=== PATIENT | male | born 1985 | race Caucasian/White ===

== ENCOUNTER 2021-03-04 05:05 | Inpatient (IN) | payer OTHER ==
[~2021-03-04] VITALS: Ht 172.7 cm; Wt 111.0 kg
--- NOTE | 2021-03-04 07:02 | NUR ---
REPORT OF PT FROM ROSINA MATTA AND ASSUMING CARE OF PT AT THIS TIME. ALL QUESTIONS ANSWERED.
--- NOTE | 2021-03-04 08:03 | NUR ---
ATTEMPTED REPORT OF PT TO FLOOR. PLACED ON HOLD FOR 10 MINUTES WITH NO ANSWER. WILL TRY TO CALL REPORT AGAIN
--- NOTE | 2021-03-04 08:29 | NUR ---
ATTEMPTED REPORT OF PT AGAIN. PER FLOOR, RN WILL CALL BACK FOR REPORT IN 5 MINUTES.
--- NOTE | 2021-03-04 08:45 | NUR ---
CALLED TECHNICAL DELIVERY MANAGER OF MED TO GIVE REPORT AT [phone] TO GIVE REPORT. PER TECHNICAL DELIVERY MANAGER, SHE WILL CALL BACK FOR REPORT IN 5 MINUTES WHEN SHE IS BACK ON FLOOR.
--- NOTE | 2021-03-04 09:03 | NUR ---
REPORT OF PT TO ROSINA MASSEY. ALL QUESTIONS ANSWERED.
--- NOTE | 2021-03-04 09:07 | NUR ---
RECEIVED REPORT FROM ROSINA WILSON. PT RESTING ON [place]. NADN. GIRON.
[2021-03-04] MEDS ORDERED: OXYcodone IR 5MG TABLET PO PRN (11:00)
[2021-03-04 13:00] VITALS: BP 115/70
[2021-03-04] MEDS ORDERED: ONDANSETRON 2MG/ML, 2ML IVPush PRN (14:30)
[2021-03-04] MEDS ORDERED: ONDANSETRON ODT 4 MG PO PRN (14:30)
[2021-03-04] MEDS ORDERED: morphine SULFATE 10 MG/ML, 1ML IVPush PRN (14:30)
[2021-03-04] MEDS ORDERED: BISACODYL 10 MG SUPP PR PRN (14:30)
[2021-03-04] MEDS ORDERED: MELATONIN 5 MG TABLET PO PRN (14:30)
[2021-03-04] MEDS ORDERED: POLYETHYLENE GLYCOL 17 GM PACKET PO PRN (14:30)
[2021-03-04] MEDS ORDERED: VANCOMYCIN PER PHARMACY MC PRN (14:30)
[2021-03-04] MEDS ORDERED: hydrALAzine 20 MG/ML, 1ML IVPush PRN (14:30)
[2021-03-04] MEDS ORDERED: PHARMACOKINETIC MONITORING MC PRN (15:00)
[2021-03-04] MEDS ORDERED: PHARMACOKINETIC CONSULTATION MC ONE (15:00)
[2021-03-04] MEDS ORDERED: VANCOMYCIN 2,500 MG in SODIUM CHLORIDE 0.9% 500 ML IV ONE (15:00)
[2021-03-04] MEDS: AMPICILLIN/SULBACTAM 3 GM in SODIUM CHLORIDE 0.9% 100 ML IV SCH ×2 (15:16→20:48)
[2021-03-04 15:21] LABS: BASOPHILS % (AUTO) 1 % (0-1); EOSINOPHILS % (AUTO) 3 % (1-7); LYMPHOCYTES % (AUTO) 20 % (22-44); MEAN CORPUSCULAR HEMOGLOBIN 32.9 pg (27.5-34.5); MEAN PLATELET VOLUME 7.7 fL (7.4-10.4); MONOCYTES % (AUTO) 9 % (2-9); NEUTROPHILS % (AUTO) 67 % (42-75); PLATELET COUNT 264 x10^3/uL (130-400); RED BLOOD COUNT 4.07 x10^6/uL (4.38-5.82); RED CELL DISTRIBUTION WIDTH 13.3 % (9.4-14.8)
[2021-03-04 15:35] LABS: ANION GAP 3 mmol/L (5-15); CALCIUM 8.8 mg/dL (8.5-10.1); CHLORIDE 107 mmol/L (98-107); CREATININE 0.96 mg/dL (0.7-1.3)
[2021-03-04 15:37] LABS: CREATINE KINASE, TOTAL 752 U/L (39-308)
[2021-03-04] MEDS: ENOXAPARIN 40 MG/0.4 ML SQ SCH (16:50)
[2021-03-04 19:03] LABS: MICROSCOPIC NOT IND
[2021-03-04 20:59] VITALS: BP 114/73
[2021-03-04] MEDS: LACTATED RINGERS 1,000 ML IV SCH (21:47)
[2021-03-05] MEDS: AMPICILLIN/SULBACTAM 3 GM in SODIUM CHLORIDE 0.9% 100 ML IV SCH ×4 (02:45→20:32)
[2021-03-05 02:58] VITALS: BP 121/78
[2021-03-05] MEDS: VANCOMYCIN 2,000 MG in SODIUM CHLORIDE 0.9% 500 ML IV SCH ×2 (04:29→17:19)
[2021-03-05 05:58] LABS: CHLORIDE 111 mmol/L (98-107)
[2021-03-05 06:02] LABS: BASOPHILS % (AUTO) 1 % (0-1); EOSINOPHILS % (AUTO) 4 % (1-7); LYMPHOCYTES % (AUTO) 30 % (22-44); MEAN CORPUSCULAR HEMOGLOBIN 33.3 pg (27.5-34.5); MEAN CORPUSCULAR HGB CONC 34.5 g/dL (33.2-36.2); MEAN PLATELET VOLUME 7.8 fL (7.4-10.4); MONOCYTES % (AUTO) 12 % (2-9); NEUTROPHILS % (AUTO) 53 % (42-75); PLATELET COUNT 238 x10^3/uL (130-400); RED BLOOD COUNT 3.85 x10^6/uL (4.38-5.82); RED CELL DISTRIBUTION WIDTH 12.9 % (9.4-14.8)
[2021-03-05 06:17] LABS: ALANINE AMINOTRANSFERASE 64 U/L (12-78); ALBUMIN 2.3 g/dL (3.4-5.0); ALKALINE PHOSPHATASE 68 U/L (45-117); ANION GAP 4 mmol/L (5-15); BILIRUBIN,TOTAL 0.7 mg/dL (0.2-1.0); CALCIUM 8.6 mg/dL (8.5-10.1); CHOL/HDL RATIO 4.1; CHOLESTEROL, TOTAL 170 mg/dL (140-239); CREATININE 0.91 mg/dL (0.7-1.3); HDL CHOL % 24 % (26-37); HDL CHOLESTEROL (DIRECT) 41 mg/dL (40-60); LDL CHOLESTEROL,CALCULATED 106 mg/dL (54-169); LDL/HDL RATIO 2.6 (0.5-3.0); TOTAL PROTEIN 6.4 g/dL (6.4-8.2); TRIGLYCERIDES 116 mg/dL (50-200); VLDL CHOLESTEROL 23 mg/dL (0-25)
[2021-03-05] MEDS: SENNA/DOCUSATE TABLET PO SCH (09:00)
[2021-03-05 09:40] VITALS: BP 116/75
[2021-03-05] MEDS: LACTATED RINGERS 1,000 ML IV SCH (09:43)
[2021-03-05 14:24] VITALS: BP 132/80
[2021-03-05] MEDS: ENOXAPARIN 40 MG/0.4 ML SQ SCH (17:47)
[2021-03-05] MEDS: ACETAMINOPHEN 325 MG TABLET PO PRN (17:47)
[2021-03-05 19:47] VITALS: BP 127/80
[2021-03-06] MEDS: LACTATED RINGERS 1,000 ML IV SCH (00:29)
[2021-03-06 01:20] VITALS: BP 120/75
[2021-03-06] MEDS: AMPICILLIN/SULBACTAM 3 GM in SODIUM CHLORIDE 0.9% 100 ML IV SCH ×4 (02:36→21:22)
[2021-03-06 03:58] LABS: BASOPHILS % (AUTO) 0 % (0-1); EOSINOPHILS % (AUTO) 5 % (1-7); LYMPHOCYTES % (AUTO) 37 % (22-44); MEAN CORPUSCULAR HEMOGLOBIN 33.6 pg (27.5-34.5); MEAN PLATELET VOLUME 7.2 fL (7.4-10.4); MONOCYTES % (AUTO) 12 % (2-9); NEUTROPHILS % (AUTO) 46 % (42-75); PLATELET COUNT 275 x10^3/uL (130-400); RED BLOOD COUNT 3.89 x10^6/uL (4.38-5.82); RED CELL DISTRIBUTION WIDTH 12.8 % (9.4-14.8)
[2021-03-06 04:05] LABS: ANION GAP 3 mmol/L (5-15); CALCIUM 8.8 mg/dL (8.5-10.1); CHLORIDE 110 mmol/L (98-107)
[2021-03-06 04:14] LABS: CREATINE KINASE, TOTAL 289 U/L (39-308); CREATININE 1.04 mg/dL (0.7-1.3); VANCOMYCIN,TROUGH 18.6 mcg/mL (5.0-10.0)
[2021-03-06] MEDS: VANCOMYCIN 2,000 MG in SODIUM CHLORIDE 0.9% 500 ML IV SCH ×2 (04:53→17:19)
[2021-03-06] MEDS: SENNA/DOCUSATE TABLET PO SCH (09:00)
[2021-03-06 09:14] VITALS: BP 120/79
[2021-03-06] MEDS: ACETAMINOPHEN 325 MG TABLET PO PRN (10:54)
[2021-03-06 14:41] VITALS: BP 127/84
[2021-03-06] MEDS: ENOXAPARIN 40 MG/0.4 ML SQ SCH (17:19)
[2021-03-06 19:21] VITALS: BP 146/90
[2021-03-07 01:37] VITALS: BP 150/82
[2021-03-07] MEDS: AMPICILLIN/SULBACTAM 3 GM in SODIUM CHLORIDE 0.9% 100 ML IV SCH ×4 (03:48→21:51)
[2021-03-07] MEDS: LACTATED RINGERS 1,000 ML IV SCH ×2 (03:49→21:51)
[2021-03-07] MEDS: VANCOMYCIN 2,000 MG in SODIUM CHLORIDE 0.9% 500 ML IV SCH ×2 (05:06→17:46)
[2021-03-07 06:20] LABS: BASOPHILS % (AUTO) 1 % (0-1); EOSINOPHILS % (AUTO) 4 % (1-7); LYMPHOCYTES % (AUTO) 33 % (22-44); MEAN CORPUSCULAR HEMOGLOBIN 32.8 pg (27.5-34.5); MEAN CORPUSCULAR HGB CONC 34.1 g/dL (33.2-36.2); MEAN PLATELET VOLUME 7.4 fL (7.4-10.4); MONOCYTES % (AUTO) 11 % (2-9); NEUTROPHILS % (AUTO) 50 % (42-75); PLATELET COUNT 248 x10^3/uL (130-400); RED BLOOD COUNT 4.13 x10^6/uL (4.38-5.82); RED CELL DISTRIBUTION WIDTH 12.9 % (9.4-14.8)
[2021-03-07 06:34] LABS: CHLORIDE 113 mmol/L (98-107)
[2021-03-07 06:44] LABS: ANION GAP 6 mmol/L (5-15); CALCIUM 8.7 mg/dL (8.5-10.1); CREATININE 1.04 mg/dL (0.7-1.3)
[2021-03-07 08:22] VITALS: BP 127/81
[2021-03-07] MEDS: SENNA/DOCUSATE TABLET PO SCH (09:00)
[2021-03-07] MEDS: OXYcodone IR 5MG TABLET PO PRN ×2 (11:30→21:59)
[2021-03-07 14:30] VITALS: BP 122/80
[2021-03-07] MEDS: ENOXAPARIN 40 MG/0.4 ML SQ SCH (17:46)
[2021-03-07 20:04] VITALS: BP 144/97
[2021-03-08 01:33] VITALS: BP 131/90
[2021-03-08] MEDS: AMPICILLIN/SULBACTAM 3 GM in SODIUM CHLORIDE 0.9% 100 ML IV SCH ×3 (03:15→13:51)
[2021-03-08] MEDS: VANCOMYCIN 2,000 MG in SODIUM CHLORIDE 0.9% 500 ML IV SCH (05:16)
[2021-03-08 06:51] VITALS: BP 116/76
[2021-03-08] MEDS: SENNA/DOCUSATE TABLET PO SCH (08:46)
[2021-03-08] MEDS ORDERED: AMOX1TAB64 PO (09:03)
[2021-03-08] MEDS: LACTATED RINGERS 1,000 ML IV SCH (10:00)
[2021-03-08 12:15] VITALS: BP 114/74
== END 2021-03-08 14:33 | disposition home or self-care (01) | DRG 603 ==
LOC: ED 08:09 → EDIP 09:47 → 3N 09:58
PROVIDERS: ADMIT Internal Medicine; ATTEND Family Medicine
DX: L03.116 Cellulitis of left lower limb (principal); M62.82 Rhabdomyolysis; E87.6 Hypokalemia; F17.200 Nicotine dependence, unspecified, uncomplicated; S81.002A Unspecified open wound, left knee, initial encounter; S81.012A Laceration without foreign body, left knee, initial encounter; W18.39XA Other fall on same level, initial encounter; Y93.89 Activity, other specified; Y92.89 Other specified places as the place of occurrence of the external cause; Y99.8 Other external cause status
CPT/HCPCS: 36415; 71046; 80048; 80053; 80061; 80202; 81003; 82550; 83036; 83735; 84100; 84443; 85025; 85651; 86140; 87040; 87070; 87077; 87186; 87205; 96374; 99285; G0378; J0295; J1650; J3370; J7040; J7120